=== PATIENT | female | born 1965 | race Caucasian/White ===

== ENCOUNTER 2018-09-15 05:09 | Emergency (ER) | payer OTHER ==
[~2018-09-15] VITALS: Ht 167.6 cm; Wt 79.4 kg
[2018-09-15 05:16] VITALS: Ht 167.6 cm; Wt 79.4 kg
[2018-09-15 06:42] LABS: BASOPHIL % 0.7 % (0-2); PLATELET COUNT 336 x10^3mcL (130-400); RED CELL DISTRIBUTION WIDTH 12.7 % (11.5-14.5)
[2018-09-15 07:03] LABS: CALCIUM 8.7 mg/dL (8.5-10.1); CARBON DIOXIDE 28.1 mmol/L (21-32); CHLORIDE SERUM 103 mmol/L (98-107); CREATININE SERUM 0.6 mg/dL (0.6-1.0); GFR1 > 60 mL/min; GLUCOSE SERUM 102 mg/dL (74-106); POTASSIUM SERUM 3.3 mmol/L (3.5-5.1); SODIUM SERUM 136 mmol/L (136-145)
[2018-09-15 07:07] LABS: ALBUMIN 3.7 g/dL (3.4-5.0); ALKALINE PHOSPHATASE 40 U/L (46-116); ALT/SGPT 21 U/L (14-59); AMYLASE 53 U/L (25-115); AST/SGOT 15 U/L (15-37); BILIRUBIN TOTAL 0.39 mg/dL (0.20-1.00); HDL CHOLESTEROL 49 mg/dL (40-60); LIPASE 91 IU/L (73-393); TOTAL PROTEIN, SERUM 7.5 g/dL (6.4-8.2)
[2018-09-15 07:10] LABS: CHOLESTEROL 250 mg/dL (<200)
[2018-09-15 07:15] LABS: microscopic required? NO
[2018-09-15 08:04] LABS: UA SPECIFIC GRAVITY >=1.030 (1.005-1.035); urine erythrocyte NEGATIVE (NEGATIVE)
[2018-09-15 08:12] LABS: AMPHETAMINE QUAL UR NONE DETECTED (See below)
[2018-09-15] MEDS ORDERED: ESTRACE2 MG PO (08:28)
[2018-09-15] MEDS ORDERED: GEMFIBROZIL600 MG (08:28)
[2018-09-15] MEDS ORDERED: ZOLOFT50 MG PO (08:28)
[2018-09-15] MEDS ORDERED: NORCO1 TA2 (08:29)
[2018-09-15 11:58] VITALS: BP 129/82
== END 2018-09-15 11:58 | disposition short-term general hospital (02) ==
LOC: ED 05:09
PROVIDERS: Emergency Medicine
DX: R07.89 Other chest pain (principal); E87.6 Hypokalemia; M79.7 Fibromyalgia; E78.00 Pure hypercholesterolemia, unspecified; Z90.710 Acquired absence of both cervix and uterus; Z88.8 Allergy status to other drugs, medicaments and biological substances
CPT/HCPCS: 36415; 83880